=== PATIENT | female | born 1995 | race Caucasian/White ===

== ENCOUNTER → 2018-07-29 | Outpatient (CLI) | payer OTHER, BC ==
[~2018-07-29] MED LIST: AMOCLA500 PO; AMOX500 PO; CEPH250A PO; CODACE30 PO; CODACEE120 PO; CRUTCH4 USE; IBUP600 PO; IBUP800 PO; NEOPOLHCSU OT; Percocet 5-3251 EACH PO; RXCODACESY PO; [UNRECOGNIZED DRUG - OTHER]
== END ==
LOC: LAB SHORT 16:06 → LAB 16:06
PROVIDERS: Obstetrics & Gynecology
DX: Z01.419 Encounter for gynecological examination (general) (routine) without abnormal findings (principal)
CPT/HCPCS: G0123

== ENCOUNTER 2018-09-29 20:21 | Emergency (ER) | payer OTHER, BC ==
[~2018-09-29] VITALS: Ht 172.7 cm; Wt 63.5 kg
[2018-09-29] MEDS ORDERED: SERT100 PO (20:39)
== END 2018-09-29 23:16 | disposition home or self-care (01) ==
LOC: ER 20:21
DX: S06.9X9A Unspecified intracranial injury with loss of consciousness of unspecified duration, initial encounter (principal); Y04.8XXA Assault by other bodily force, initial encounter; Z88.0 Allergy status to penicillin; Z79.899 Other long term (current) drug therapy
CPT/HCPCS: 70450; 99284-25

== ENCOUNTER 2019-04-19 18:49 | Emergency (ER) | payer OTHER, BC ==
[~2019-04-19] VITALS: Ht 172.7 cm; Wt 68.0 kg
[~2019-04-19 18:49] MED LIST changes: +SERT100 PO
[2019-04-19] MEDS ORDERED: Vibramycin100 MG PO (20:53)
== END 2019-04-19 21:15 | disposition home or self-care (01) ==
LOC: ER 18:49
DX: S61.451A Open bite of right hand, initial encounter (principal); Z88.0 Allergy status to penicillin; W54.0XXA Bitten by dog, initial encounter
CPT/HCPCS: 29125; 73130; 90471; 90714; 99283-25; A9270

== ENCOUNTER → 2020-12-23 | Outpatient (CLI) | payer OTHER, BC ==
[~2020-12-23] MED LIST changes: +Vibramycin100 MG PO
[2020-12-30 01:07] LABS: HPV APTIMA Positive (Negative); HPV GENOTYPE 16 Negative (Negative)
== END | disposition home or self-care (01) ==
LOC: LAB 16:06 → LAB SHORT 16:06
PROVIDERS: Obstetrics & Gynecology
DX: Z12.4 Encounter for screening for malignant neoplasm of cervix (principal)
CPT/HCPCS: 87624; 87625; G0123

== ENCOUNTER → 2021-02-23 | Outpatient (CLI) | payer OTHER ==
[2021-02-25 01:07] LABS: CHLAMYDIA TRACHOMATIS, NAA Negative (Negative)
== END | disposition home or self-care (01) ==
LOC: LAB SHORT 14:09 → LAB 14:09
PROVIDERS: Obstetrics & Gynecology
DX: Z11.3 Encounter for screening for infections with a predominantly sexual mode of transmission (principal)
CPT/HCPCS: 87491; 87591

== ENCOUNTER 2021-11-07 16:55 | Emergency (ER) | payer OTHER ==
[~2021-11-07] VITALS: Ht 172.7 cm; Wt 72.6 kg
== END 2021-11-07 21:35 | disposition home or self-care (01) ==
LOC: ER 16:55
DX: T18.128A Food in esophagus causing other injury, initial encounter (principal); X58.XXXA Exposure to other specified factors, initial encounter; Z88.0 Allergy status to penicillin; Z79.899 Other long term (current) drug therapy
CPT/HCPCS: A9270

== ENCOUNTER 2021-12-08 21:31 | Emergency (ER) | payer OTHER ==
[~2021-12-08] VITALS: Ht 172.7 cm; Wt 54.4 kg
[2021-12-08] MEDS ORDERED: SERT100 PO (22:34)
== END 2021-12-09 01:50 | disposition short-term general hospital (02) ==
LOC: ER 21:31
DX: T18.128A Food in esophagus causing other injury, initial encounter (principal); Z88.0 Allergy status to penicillin
CPT/HCPCS: 96374; 96375; 96376; 99284-25; J1610; J2765

== ENCOUNTER → 2022-01-04 | Outpatient (CLI) | payer OTHER ==
[2022-01-05 17:12] LABS: HPV 16 Negative (Negative); HPV 18 Negative (Negative); HPV OTHER HR TYPES Positive (Negative)
== END | disposition home or self-care (01) ==
LOC: LAB SHORT 16:41 → LAB 16:41
PROVIDERS: Obstetrics & Gynecology
DX: R87.610 Atypical squamous cells of undetermined significance on cytologic smear of cervix (ASC-US) (principal); R87.810 Cervical high risk human papillomavirus (HPV) DNA test positive
CPT/HCPCS: 87624; 88142

== ENCOUNTER → 2022-01-31 | Outpatient (CLI) | payer OTHER | END | disposition home or self-care (01) | LOC: LAB SHORT 07:45 → LAB 07:45 | DX: R87.612 Low grade squamous intraepithelial lesion on cytologic smear of cervix (LGSIL) (principal); R87.810 Cervical high risk human papillomavirus (HPV) DNA test positive | CPT/HCPCS: 88305; 88342 ==

== ENCOUNTER → 2022-06-05 | Outpatient (CLI) | payer OTHER ==
[2022-06-06 10:09] LABS: Candida species (DNA Probe) Negative (NEGATIVE); G. vaginalis (DNA Probe) Positive (NEGATIVE); T. vaginalis (DNA Probe) Negative (NEGATIVE)
[2022-06-07 00:09] LABS: CHLAMYDIA TRACHOMATIS, NAA Negative (Negative)
== END | disposition home or self-care (01) ==
LOC: LAB 11:57 → LAB SHORT 11:57
PROVIDERS: Emergency Medicine
DX: N94.89 Other specified conditions associated with female genital organs and menstrual cycle (principal)
CPT/HCPCS: 87480; 87491; 87510; 87591; 87660

== ENCOUNTER → 2022-06-05 | Outpatient (CLI) | payer OTHER ==
[2022-06-08 06:09] LABS: HSV-1 DNA Negative (Negative); HSV-2 DNA Positive (Negative)
== END ==
LOC: LAB SHORT 12:07 → LAB 12:07
PROVIDERS: Emergency Medicine
DX: N94.89 Other specified conditions associated with female genital organs and menstrual cycle (principal)
CPT/HCPCS: 87529

== ENCOUNTER → 2022-07-18 | Outpatient (CLI) | payer OTHER ==
[2022-07-20 14:09] LABS: HPV 16 Negative (Negative); HPV 18 Negative (Negative); HPV OTHER HR TYPES Negative (Negative)
== END ==
LOC: LAB 14:00 → LAB SHORT 14:00
PROVIDERS: Obstetrics & Gynecology
DX: R87.810 Cervical high risk human papillomavirus (HPV) DNA test positive (principal); R87.612 Low grade squamous intraepithelial lesion on cytologic smear of cervix (LGSIL)
CPT/HCPCS: 87624; 88175

== ENCOUNTER 2024-03-26 10:21 | Emergency (ER) | payer OTHER ==
[~2024-03-26] VITALS: Ht 172.7 cm; Wt 63.5 kg
[2024-03-26 11:59] LABS: Source, Urine Clean Catch
[2024-03-26 12:29] LABS: BASOPHILS ABSOLUTE AUTO 0.07 K/mm3 (0.00-0.23); BASOPHILS PERCENT AUTO 1 % (0-2); EOSINOPHILS ABSOLUTE AUTO 0.85 K/mm3 (0.00-0.68); EOSINOPHILS PERCENT AUTO 7 % (0-6); Hematocrit 43.8 % (33.0-51.0); Hemoglobin 14.2 g/dL (11.5-16.0); IMMATURE GRAN ABSOLUTE AUTO 0.04 K/mm3 (0.00-0.10); IMMATURE GRAN PERCENT AUTO 0 % (0-1); LYMPHOCYTES ABSOLUTE AUTO 1.86 K/mm3 (0.84-5.20); LYMPHOCYTES PERCENT AUTO 16 % (21-46); MONOCYTES ABSOLUTE AUTO 0.81 K/mm3 (0.16-1.47); MONOCYTES PERCENT AUTO 7 % (4-13); Mean Corpuscular HGB 30.2 pg (26.0-34.0); Mean Corpuscular HGB Conc 32.4 g/dL (31.5-36.5); Mean Corpuscular Volume 93 fL (80-100); Mean Platelet Volume 9.2 fL (9.1-12.4); NEUTROPHILS ABSOLUTE AUTO 7.82 K/mm3 (1.96-9.15); NEUTROPHILS PERCENT AUTO 68 % (41-73); Platelet Count 236 K/mm3 (150-400); RDW Standard Deviation 48.6 fL (35.1-46.3); White Blood Cell Count 11.45 K/mm3 (4.00-11.30)
[2024-03-26 12:42] LABS: Appearance, Urine Clear (Clear); Bilirubin, Urine Neg (Neg); Blood, Urine Neg (Neg); Color, Urine Yellow (P-Yellow); Glucose Qualitative, Urine Neg (Neg); Ketones, Urine Neg (Neg); Leukocyte Esterase, Urine Neg (Neg); Nitrite, Urine Neg (Neg); Protein, Urine Neg (Neg); Specific Gravity, Urine 1.025 (1.003-1.022); Urobilinogen, Urine NORM (Normal)
[2024-03-26 12:50] LABS: Albumin, Blood 3.7 g/dL (3.4-5.0); Bilirubin, Total 0.3 mg/dL (0.1-1.0); Bun/Creatinine Ratio 9.6 (12.0-20.0); Creatinine, Blood 0.94 mg/dL (0.40-1.00); Globulin, Blood 3.6 g/dL (2.2-4.0); Potassium, Blood 3.8 mmol/L (3.5-5.5); Total Protein, Blood 7.3 g/dL (6.4-8.2)
[2024-03-26] MEDS ORDERED: SULTRIDS PO (14:13)
[2024-03-26] MEDS ORDERED: ONDA4ODT MM (14:13)
[2024-03-26 14:21] VITALS: BP 135/80
== END 2024-03-26 14:22 | disposition home or self-care (01) ==
LOC: ER 10:21
PROVIDERS: Physician Assistant
DX: K52.9 Noninfective gastroenteritis and colitis, unspecified (principal); Z88.0 Allergy status to penicillin
CPT/HCPCS: 74177; 80053; 81003; 85025; 99284-25; Q9967

== ENCOUNTER 2025-02-15 19:06 | Emergency (ER) | payer OTHER ==
[~2025-02-15] VITALS: Ht 172.7 cm; Wt 65.8 kg
[~2025-02-15 19:06] MED LIST changes: +ONDA4ODT MM; +SULTRIDS PO
[2025-02-15 19:33] VITALS: BP 115/72
[2025-02-15] MEDS ORDERED: BACTRIM DS TAB1 EAC1 PO (19:40)
[2025-02-15] MEDS ORDERED: Trimethoprim/Sulfamethoxazole DS Tab PO ONE (19:40)
[2025-02-15] MEDS ORDERED: CEPH500 PO (19:40)
== END 2025-02-15 20:10 | disposition home or self-care (01) ==
LOC: ER 19:06
DX: L08.9 Local infection of the skin and subcutaneous tissue, unspecified (principal); B95.62 Methicillin resistant Staphylococcus aureus infection as the cause of diseases classified elsewhere; Z88.0 Allergy status to penicillin
CPT/HCPCS: 99283; A9270